=== PATIENT | female | born 1970 | race Caucasian/White ===

== ENCOUNTER 2018-06-03 13:16 | Emergency (ER) | payer SELFPAY ==
[~2018-06-03] VITALS: Ht 157.5 cm; Wt 88.0 kg
[2018-06-03 13:28] VITALS: BP 150/79; Ht 157.5 cm; Wt 88.0 kg
== END 2018-06-03 15:17 | disposition home or self-care (01) ==
LOC: ED 13:16
DX: L60.0 Ingrowing nail (principal); E11.9 Type 2 diabetes mellitus without complications
CPT/HCPCS: J2001